=== PATIENT | male | born 1970 | race Caucasian/White ===

== ENCOUNTER 2021-01-15 16:05 | Emergency (ER) | payer OTHER, SELFPAY ==
[2021-01-15 16:07] VITALS: BP 129/75; PULSE 86; RESP 16; TEMP 36.7; O2SAT 96
--- NOTE | 2021-01-15 16:43 | W.ED.GENAD ---
Discharge Plan Disposition Patient Disposition: HOME Condition: Stable Discharge Details Clinical Impression: Acute lumbar myofascial strain Primary Care Provider: Yamil Arias ED Provider: Doreen Shrestha Home Meds and New Rx's Prescriptions: New methocarbamol 500 mg tablet 500 mg PO Q6H PRN (Reason: muscle spasm) Qty: 14 RF: 0 prednisone 20 mg tablet See Rx Instructions .ROUTE .COMPLEX Qty: 18 RF: 0 Discharge Instructions Instructions: Low Back Strain (ED), Core Strengthening Exercises (ED) Additional Instructions: Alternate ice and heat to the affected area(s) several times daily for 20 minutes at a time. Alternate tylenol and motrin as needed and directed for pain. Prescriptions for steroids and muscle relaxers have been sent electronically to your pharmacy. Start the steroid prescription tomorrow and take this as directed until finished. Follow-up with your primary care doctor in 1 week. Return to the emergency department with any worsening or new concerning symptoms. Stand Alone Forms: Work Release Discharge Data Discharge Date/Time-TO BE ENTERED AT DEPARTURE: 01/15/21 17:27 Discharge Physician: Doreen Shrestha Medical Decision Making 50-year-old male presents with lower back pain after lifting a heavy package at work this afternoon. No cauda equina symptoms. Patient appears uncomfortable with walking and bending but nontoxic. He has reproducible bilateral lumbar paraspinal tenderness but no midline lumbar spine tenderness. Neurovascularly intact. No focal deficits. No evidence of trauma, cellulitis or step-off to back. Suspect most likely muscular strain. History and presentation does not appear consistent with fracture or disc herniation at this time and do not see an indication for imaging. Discussed with patient that if his symptoms worsen or he develops any radicular symptoms or loss of bowel or bladder function, to return immediately to the emergency department for reevaluation and consideration for imaging at that time. He was offered a dose of Toradol but declined. He was given a dose of prednisone and Motrin here and prescriptions for prednisone and methocarbamol sent electronically to his pharmacy. Work note given. Advised to follow-up with his Worker's Compensation physician for reevaluation. Usual and customary return precautions given prior to discharge. Medical Records Medical records reviewed: Yes I reviewed the patient's medical records. HPI General Mode of arrival: ambulatory. Date/Time Provider Initiated Documentation: 01/15/21 16:21. Limitations to Documentation: no limitations. Information obtained by: patient. 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 He states the weight of the package is approximately 140 pounds. He states the pain is across his lower back. He denies any radiation of pain to his legs or extremity weakness or numbness, abdominal pain, urinary symptoms, saddle anesthesia, bowel or bladder incontinence. He has not taken any medication for pain. He states the pain is worse with walking and bending. Related Data Home Medications Medication Instructions Recorded Confirmed methocarbamol 500 mg PO Q6H PRN #14 tab 01/15/21 prednisone See Rx Instructions .ROUTE 01/15/21 .COMPLEX #18 tab Previous Rx's Medication Instructions Recorded methocarbamol 500 mg PO Q6H PRN #14 tab 01/15/21 prednisone See Rx Instructions .ROUTE 01/15/21 .COMPLEX #18 tab Allergies Allergy/AdvReac Type Severity Reaction Status Date / Time No Known Allergies Allergy Unverified 01/15/21 16:11 General Stated Complaint: Nk/Back Pain MALLORY: 3 Review of Systems All systems reviewed & are unremarkable except as noted in HPI and below Constitutional Constitutional: Reports as per HPI, Denies chills and Denies fever(s) Eyes Eyes: Denies blurry vision ENT Ears, Nose, Mouth, and Throat: Denies dizziness, Denies sore throat and Denies throat swelling Cardiovascular Cardiovascular: Denies chest pain and Denies dyspnea Respiratory Respiratory: Denies cough and Denies dyspnea Gastrointestinal Gastrointestinal: Denies abdominal pain, Denies diarrhea and Denies vomiting Genitourinary Genitourinary: Denies hematuria and Denies dysuria Musculoskeletal Musculoskeletal: Reports back pain and Denies numbness Integumentary/Breasts Skin/Breast: Denies lesions and Denies rash Neurologic Neurologic: Denies dizziness, Denies localized weakness and Denies numbness Allergic/Immunologic Allergic/Immunologic: Denies throat swelling [facility] Medical History (Updated 01/15/21 @ 17:59 by Doreen Shrestha DO) No significant past medical history Surgical History (Updated 01/15/21 @ 17:59 by Doreen Shrestha DO) H/O shoulder surgery Social History Smoking/Tobacco Use Status: Never Smoking risk assessment performed?: Yes Alcohol Intake: current Alcohol Intake frequency: a few times a month Alcohol type: beer Drug use: Never Do you feel safe at home: Yes Do you feel safe in your relationship?: Yes Exam Const General: cooperative, healthy appearing and no acute distress HENFL Head: normal to inspection Face and sinus: normal facial exam Eyes General: appearance normal, both eyes and all related structures Pupils: PERRL EOM: EOM intact bilaterally Neck Neck: normal visual inspection and No submandibular swelling Lymphatic: no lymphadenopathy noted Chest Chest: normal inspection of the chest and no tenderness Resp Effort & Inspection: normal respiratory effort and able to speak in complete sentences Auscultation: clear to auscultation bilaterally Cardio Rate: regular rate Rhythm: regular rhythm GI Palpation: soft, not firm, not rigid and nontender Auscultation: hypoactive bowel sounds Back/Spine/Pelvis Thoracic/Lumbar Spine: thoracic and lumbar spine normal to inspection, straight leg raise negative bilaterally, paraspinal tenderness (b/l lumbar), No thoracic spinal tenderness and No lumbar spinal tenderness Pelvis: no pain with anterior-posterior compression Skin General skin exam: no rashes or lesions noted Neuro General: patient alert, patient awake and patient oriented x3 Cognition: normal cognition Speech: speech normal Motor: muscle tone normal throughout Sensory Exam: no sensory deficits noted Other: MS b/l LE 5/5. Extrem General: normal to inspection, full ROM, capillary refill normal, no calf tenderness bilaterally and no edema Other: B/L DP/PT pulses intact. Psych Appearance: grossly normal Mental Status: mental status grossly normal Speech and Movement: speech and movement normal Affect: normal affect Course Vital Signs Vital signs: Vital Signs Temperature 98.1 F 01/15/21 16:07 Pulse 86 01/15/21 16:07 Respiratory Rate 16 01/15/21 16:07 Blood Pressure 129/75 01/15/21 16:07 Pulse Oximetry 96 01/15/21 16:07 Temperature 98.1 F 01/15/21 16:07 Temperature Source Skin 01/15/21 16:07 Pulse 86 01/15/21 16:07 Respiratory Rate 16 01/15/21 16:07 Respiratory Effort 01/15/21 16:13 Blood Pressure 129/75 01/15/21 16:07 Blood Pressure Position Sitting 01/15/21 16:07 Pulse Oximetry 96 01/15/21 16:07 Oxygen Delivery Method Room Air 01/15/21 16:07 Oxygen Flow Rate 0 01/15/21 16:07 Pain Level 7 01/15/21 16:19 Comment 01/15/21 16:07 PAWSS Have you Been Recently Intoxicated or Drunk Within the Last 30 days?: No Have you Ever Experienced Previous Episodes of Alcohol Withdrawal?: No Have you ever Experienced Withdrawal Seizures?: No Have you ever Experienced Delirium Tremens(DT)s?: No Have you ever undergone Alcohol Rehabilitation Treatment (i.e, inpt ot outpatient treatment programs)?: No Have you ever Experienced Blackouts?: No Have you ever Combined Alcohol with other Downers within the last 90 days?: No Have you ever Combined Alcohol with any other Substance of Abuse during the last 90 days?: No Positive Blood Alcohol level on Presentation? [PCS.BAL]: No Evidence of Increased Autonomic Activity (i.e. HR>120, tremor, sweating, agitation, nausea)?: No Result: 0
[2021-01-15] MEDS: Ibuprofen 600 MG TAB PO (17:07)
[2021-01-15] MEDS: predniSONE 20 MG TAB 60 MG PO (17:08)
[2021-01-15] MEDS: diazePAM 5 MG TAB PO (17:08)
[2021-01-15 17:25] VITALS: BP 118/81; PULSE 81; RESP 16; O2SAT 95
== END 2021-01-15 17:27 | disposition home or self-care (01) ==
PROVIDERS: Emergency Provider Physician Assistant; PCP Family Medicine
DX: S39.012A Strain of muscle, fascia and tendon of lower back, initial encounter (principal); X50.0XXA Overexertion from strenuous movement or load, initial encounter; Y99.0 Civilian activity done for income or pay
CPT/HCPCS: 99283; J7512